=== PATIENT | male | born 1985 | race Two or more races ===

== ENCOUNTER 2017-07-28 14:24 | Day surgery (SDC) | payer BC ==
--- NOTE | 2017-07-22 20:42 | HP ---
PREOPERATIVE HISTORY AND PHYSICAL: DATE OF SURGERY: 07/28/17 DATE OF OFFICE VISIT: 07/22/17 ATTENDING SURGEON: Dr. Charley Pearson * (DICTATED BY ENEIDA MADERA) PROCEDURE: Right shoulder arthroscopic labral repair, decompression, and debridement. CHIEF COMPLAINT: Right shoulder pain and instability. HISTORY OF PRESENT ILLNESS: Brii is a 31-year-old male who presents to the clinic for right shoulder pain and instability. He has had several years of shoulder subluxation/dislocation. He has failed conservative measures and has therefore, agreed to undergo a right shoulder arthroscopic labral repair, decompression and debridement with Dr. Pearson on 07/28/17. PAST MEDICAL HISTORY: Anxiety and depression. PAST SURGICAL HISTORY: No prior surgeries. MEDICATIONS: No active medications. ALLERGIES: TINIDAZOLE. FAMILY HISTORY: Positive for heart disease. Denies family history of DVT or PE. SOCIAL HISTORY: He lives alone. He is at [place], doing postop research. He denies tobacco or alcohol use. REVIEW OF SYSTEMS: A 14-point review of systems was reviewed with the patient. Positive for current complaint, otherwise negative. Denies chest pain or shortness of breath. Denies fever or chills. Denies history of bleeding disorder. Denies history of DVT or PE. PHYSICAL EXAMINATION GENERAL: Well-developed, well-nourished 31-year-old male, in no acute distress. VITAL SIGNS: Height 72, weight 180, resting blood pressure 120/68, respiratory rate 18, BMI 24.4. HEENT: Normocephalic, atraumatic. PERRLA. Throat: Clear. NECK: Supple. PULMONARY: Lungs are clear to auscultation bilaterally. No wheezing, rhonchi, or rales. CARDIO: Regular rate and rhythm. S1, S2. No murmurs, gallops, or rubs. No edema. ABDOMEN: Positive bowel sounds, soft, and nontender. NEURO: Alert and oriented x3. Cranial nerves grossly intact. Sensation is intact to light touch. MUSCULOSKELETAL: Right upper extremity, normal alignment, no gross deformity. Skin is intact. No warmth or erythema. Nontender to palpation. Forward flexion to 150, abduction to 160, external rotation to 45, internal rotation to the lumbar spine. +5/5 strength to rotator cuff testing. +2 radial pulse. Sensation is intact to light touch distally. DIAGNOSTIC STUDIES: MR arthrogram revealed posterior and anterior labral tear with bony involvement and [id number] Hill-Sachs lesion, no obvious rotator cuff tear. IMPRESSION: Right shoulder labral tear. PLAN: The patient is schedule for undergo a right shoulder arthroscopic labral repair, decompression and debridement with Dr. Pearson on 07/28/17. He will return to the office in 10 to 14 days postop for followup and suture removal. Percocet will be used for postop pain management. ENEIDA MADERA [id number]/[facility] #: [id number] M[facility] IMOGEN[facility] BASSETT HOSPITALJavid
[~2017-07-28 14:24] MED LIST: Buffered Lidocaine 0.9% SYRIN* 5 ML/SYR SYRINGE INTRADERM ONE; Famotidine IV* 10 MG/ML 2 ML (20 mg) IV SLOW PU ONE; Midazolam* 1 MG/ML 2 ML VIAL (2 MG) ONE; fentaNYL* 50 MCG/ML 2 ML VIAL (100 MCG VIAL) ONE
[2017-07-28] MEDS ORDERED: Famotidine IV* 10 MG/ML 2 ML (20 mg) ONE (14:46)
[2017-07-28] MEDS ORDERED: Buffered Lidocaine 0.9% SYRIN* 5 ML/SYR SYRINGE ONE (14:46)
[2017-07-28] MEDS ORDERED: ceFAZolin 2 GM PREMIX (*) 2 GM/50 ML BAG IVPB ONE (14:47)
[2017-07-28] MEDS ORDERED: Dexamethasone IV* 4 MG/ML 1 ML (4 MG) ONE (15:40)
[2017-07-28] MEDS ORDERED: Ondansetron INJ* 2 MG/ML VIAL ONE (15:40)
[2017-07-28] MEDS ORDERED: Propofol* 10 MG/ML 20 ML BTL IV PUSH ONE (15:40)
[2017-07-28] MEDS ORDERED: DiMENhydriNATE IV* 50 MG/ML VIAL ONE (15:40)
[2017-07-28] MEDS ORDERED: Ketorolac INJ* 30 MG/ML 1 ML VIAL ONE (15:40)
[2017-07-28] MEDS ORDERED: Bupivacaine 0.25% SDV* 30 ML ONE (16:28)
[2017-07-28] MEDS ORDERED: Lidocaine 1% INJ* 10 MG/ML 30 ML SDV ONE (16:37)
[2017-07-28] MEDS ORDERED: ROPIVACAINE 5 MG/ML 30 ML BTL (0.5%) ONE (16:38)
[2017-07-28] MEDS ORDERED: KETAMINE HCL* 50 MG/ML 10 ML VIAL ONE (17:21)
[2017-07-28] MEDS ORDERED: DiMENhydriNATE IV* 50 MG/ML VIAL IV PUSH PRN (18:09)
[2017-07-28] MEDS ORDERED: HYDROmorphone INJ* 1 MG/ML CARPUJECT SYRINGE IV PRN (18:09)
[2017-07-28] MEDS ORDERED: oxyCODONE/Acetamin 5/325 MG* TAB PO PRN (18:09)
[2017-07-28] MEDS ORDERED: fentaNYL* 50 MCG/ML 2 ML VIAL (100 MCG VIAL) ONE (18:16)
[2017-07-28 21:22] VITALS: BP 130/79
--- NOTE | 2017-08-01 03:23 | OP ---
OPERATIVE REPORT: DATE OF OPERATION: 07/28/17 DATE OF : 89 SURGEON: Charley Pearson MD. [employer] VEHICLE OPERATOR: ENEIDA Jiménez. ANESTHESIOLOGIST: Dr Mendez ANESTHESIA: General with interscalene block. PRE-OP DIAGNOSIS: Right shoulder instability. POST-OP DIAGNOSIS: Right shoulder instability. OPERATIVE PROCEDURE: Right shoulder arthroscopy with anterior and posterior labral repair. IMPLANTS USED: Four 2.9 mm Bioraptors. INDICATIONS: Brii Fuller is a 31-year-old male who has a 5-year history of shoulder instability, who was treating this conservatively until a recent issue in early April when he flew home to [facility] and dislocated his shoulder. He was then placed in a sling for about 4 weeks. He did not do any physical therapy. He has been trying to resume his activities. He has a lot of apprehension about his raising his arm up. He had a significant amount of symptoms when I first met him about 2 months previous to today's date. He attended physical therapy. He still is missing some range of motion. I have had an extensive discussion with him about how his lack of motion could cause stiffness in the future. We talked about being aggressive with the therapy. He states that because of his instability, he is very cautious of what he does with his shoulder. He does not even lift, push, or pull if he does not have to. He does not sleep on his side because of the fear of dislocation. After extensive discussion, risks and benefits of the surgery versus nonoperative treatment, he has elected to proceed with surgical treatment. Risks included, but are not limited to bleeding, infection, damage to nerves, vessels, surrounding structures, wound nonhealing, persistent pain, need for further surgery, scarring, stiffness, incomplete relief of symptoms, risks of anesthesia. The re-dislocation risk was discussed as well. He has elected to proceed with surgery. DESCRIPTION OF PROCEDURE: The patient was greeted in the preoperative area by the attending surgeon. Correct extremity was marked and consent was confirmed. The patient then underwent interscalene block by the anesthesiologist, after which he was brought back to the operating suite where he was placed in supine position on the operating table. He then underwent general anesthesia with endotracheal intubation. After which he was placed in the left lateral decubitus position, he was prepared with a pegboard and axillary roll was placed. The right shoulder was then draped unsterile with 10 pounds of traction. The right shoulder was prepped and draped in the usual sterile fashion beginning with chlorhexidine soap, scrub, and alcohol wipe and a final prep with ChloraPrep. After appropriate surgical pause indicating side, site, procedure, and administration of antibiotics, the standard posterolateral portal was made sharply with 11 blade. The scope was introduced into the joint and joint was examined. There was abundant erythema and evidence of capsular stretch in the shoulder. The biceps appeared to have a very minimal amount of fraying. Superior labrum was intact. There was some synovitis present in the biceps, however, there was not an evidence of tearing at the base and there was abundant hyperemia in the anterior aspect of the interval. Decision was made to not do a biceps tenodesis. The anterior labrum was diminutive and hard. It was difficult to assess and evaluate. There was a capsule that was stretched that was apparent. The glenoid was then rasped using a red ball rasp as well as a double ended curved rasp. The shaver was also used to debride this back. The soft tissues were carefully elevated to try to find as much capsule and labrum that was remaining. The labrum again was very diminutive and poor quality. The capsule was carefully rasped. Once the glenoid preparation as well as the capsular preparation was prepared, the anchor placement began first at around the 5:30 position and an anchor was placed with excellent purchase. The bone quality was very poor and very soft. This was placed with excellent purchase. The sutures were then passed in a horizontal mattress configuration with excellent purchase. A second anchor was placed at around 4:30 position with excellent purchase. The sutures were then passed in a simple configuration. This also helped to allow for inferior superior capsular shift beginning with the first anchor and then supported with the second anchor, a third anchor was placed at the 3 o'clock to 3:30 position and with excellent purchase. Again the bone quality was quite poor. The MGHL as well as the capsule were grabbed and secured. The sutures were tied down with arthroscopic knot tying after each anchor was passed. This allowed for appropriate capsular shift. The inferior labral pad posteriorly had evidence of a small unstable flap. This was debrided back using the shaver, the scope was then positioned anteriorly and a portal was placed posteriorly. The probe was used to check the posterior labrum and there was evidence of tearing; therefore, decision was made to put a small anchor posteriorly. This was placed with excellent purchase , again the bone quality was poor. This passed in a simple configuration and again further allowed for further alevism and centralization of the humeral head and the socket. The joint was copiously irrigated. Final images were obtained. The wounds were copiously irrigated with sterile saline. The portals were closed with 3-0 nylon. Sterile dressings were applied. Cryo/Cuff and UltraSling were applied. He was awoken from anesthesia and transferred to PACU in stable condition. POSTOPERATIVE PLAN: He will be nonweightbearing. He will be in the sling for 4 weeks. He will start physical therapy at that time. I will see him back in 10 to 14 days. DVT prophylaxis was considered, but deferred due to no previous personal or family history. He will discharged on pain medications. [id number]/[facility] #: [id number] BOB
== END 2017-07-28 20:30 | disposition home or self-care (01) ==
LOC: OR 14:24
PROVIDERS: ATTEND Orthopaedic Surgery
DX: M25.311 Other instability, right shoulder (principal)
CPT/HCPCS: J0690; J1100; J1240; J1885; J2250; J2405; J2704; J2795; J3010